=== PATIENT | female | born 1950 | race Caucasian/White ===

== ENCOUNTER → 2023-04-29 08:42 | Outpatient (REF) | payer MEDICARE, OTHER, SELFPAY | LOC: HWWDC 08:42 | PROVIDERS: ATTENDING PHYSICIAN Obstetrics & Gynecology Gynecology; FAMILY PHYSICIAN Family Medicine | DX: Z12.31 Encounter for screening mammogram for malignant neoplasm of breast (principal) | CPT/HCPCS: 77063; 77067 ==

== ENCOUNTER 2024-08-28 17:30 | Emergency (ER) | payer MEDICARE, OTHER, SELFPAY ==
[2024-08-28 17:37] VITALS: BP 137/79
[2024-08-28 17:58] LABS: Hematocrit 35.2 % (37.0-47.0); Hemoglobin 12.1 g/dL (12.0-16.0); Mean Corp Hgb Conc. 34.4 g/dL (33.0-37.0); Mean Corpuscular Volume 90.0 fL (81.0-99.0); Nucleated Red Blood Cells % 0 %; Platelet Count 275 10^3/uL (130-400); Red Cell Dist. Width 13.9 % (11.5-14.5)
[2024-08-28 18:00] VITALS: BMI 23.3
[2024-08-28 18:07] LABS: ALT (SGPT) 17 U/L (0-35); AST (SGOT) 24 U/L (14-36); Albumin 4.4 g/dl (3.5-5.0); Alkaline Phosphatase 49 U/L (38-126); Blood Urea Nitrogen 23 mg/dl (7-17); Calcium 9.3 mg/dl (8.4-10.2); Carbon Dioxide 23 mmol/L (22-30); Chloride 108 mmol/L (98-107); Glucose 102 mg/dl (70-99); Potassium 4.3 mmol/L (3.5-5.1); Sodium 135 mmol/L (135-145); Total Protein 6.5 g/dl (6.3-8.2); eGFR > 60.00
[2024-08-28 18:18] LABS: Troponin I < 0.012 ng/ml
[2024-08-28 21:00] VITALS: BMI 23.3
--- NOTE | 2024-08-28 21:03 | ED.GENMED ---
History of Present Illness
General
Chief Complaint: Chest Pain
Time Seen by Provider: 08/28/24 20:48
History of Present Illness
History of Present Illness:
74-year-old female presents the emergency department for evaluation of central chest discomfort and a 'weird' feeling in her chest that began while working in her garden at approximately 1300 today. [place] short of breath particular with exertion as
well as generally shaky. She has since improved. No history of similar symptoms. She is a typically very active person and has never had similar symptoms with this activity. No associated fever, chills, sweats, coughing, or vomiting.
Past History
Past History
ED Past Medical History: None
Social History
Tobacco: Non-smoker
Review of Systems
Review of Systems
Allergies reviewed?: Yes
All Other Systems: ROS reviewed and negative except as documented in HPI and ROS
Phy Exam
Physical Exam
Physical Exam:
GEN: Well appearing, NAD, WDWN
HEENT: Oral mucosa moist, no scleral icterus
Cardiac: Regular rate and rhythm, no murmur
Lung: No respiratory distress, no tachypnea, lungs clear to auscultation bilaterally
MSK: No gross deformity or injuries
Skin: Good color, no pallor or jaundice, no rashes
Neuro: AO x3, moves all extremities freely
Psych: Calm, cooperative
Scores
Heart Score for Chest Pain Patients
STEMI patient?: No
History: Moderately Suspicious
ECG: Normal
Age: >/= 65 years
Risk Factors: No Risk Factors
Troponin: </= Normal Limit
Heart Score for Chest Pain Patients: 3
Heart Score Risk: 2.5% MACE over next 6 weeks
Course
Orders/Labs/Results
Orders:
Orders
08/28/24 17:31
Electrocardiogram (*1) Urgent
Reason for Study: Chest Pain
EKG- Treatment ONCE
08/28/24 17:44
CMP [Comprehensive Metabolic Panel] Urgent
Complete Blood Count/With Diff Urgent
Troponin I Urgent
08/28/24 21:03
Electrocardiogram (*1) Urgent
Reason for Study: Chest Pain
EKG- Treatment ONCE
CR Chest - 2 Views Urgent
Comment:
Reason For Exam: chest pain/DIMAS
08/28/24 21:16
Troponin I Urgent
Abnormal Lab Results
08/28/24
17:44
RBC 3.91 L 10^6/uL
(4.20-5.40)
Hct 35.2 L %
(37.0-47.0)
Chloride 108 H mmol/L
(98-107)
BUN 23 H mg/dl
(7-17)
Glucose 102 H mg/dl
(70-99)
08/28/24 17:44
08/28/24 17:44
Vital Signs
Initial and Last Documented VS:
Initial Vital Signs
Temp Pulse Resp BP Pulse Ox
97.8 F 83 20 137/79 98
08/28/24 17:37 08/28/24 17:37 08/28/24 17:37 08/28/24 17:37 08/28/24 17:37
Last Documented Vital Signs
Temp Pulse Resp BP Pulse Ox
97.8 F 60 22 139/83 98
08/28/24 17:37 08/28/24 22:30 08/28/24 22:30 08/28/24 22:04 08/28/24 22:07
MDM/Problems Addressed
MDM/Problems Addressed:
Patient's initial and delta troponin/EKG all reassuring, she felt well in the ED. Will refer to cardiology as an outpatient, suitable for outpatient management
Comment
Comment:
EKG independently interpreted by me shows normal sinus rhythm with no ST changes concerning for ischemia
*Pulse Oximetry
SaO2: 98
Oxygen Mode of Delivery: Room air
Patient hypoxic: no
*Critical Care Note
Total Time (30-74mins, 75-104mins- exclusive of procedures): Not Applicable
ED Attending Note
-
Portions of this chart may have been created with voice recognition software.� Occasional wrong word or��sound alike� substitutions may have occurred due to the inherent limitations of voice recognition software.
Discharge Plan
Departure
Patient Disposition: Home (Routine Discharge)
Date of Disposition: 08/28/24
Time of Disposition: 22:24
Patient with high blood pressure during this ER visit?: No
Discharge Problem:
Chest pain
Instructions: Chest Pain DCA Follow Up
Prescriptions:
No Action
amoxicillin-pot clavulanate 1 TABLET tablet
1 tab PO Q12 Qty: 10 0RF
Referrals:
Daniel Harris DO [Family Provider, Family Practice]
Nish Resendiz MD [Active, Cardiology]
Interventions
Interventions:
*Risk Screen - Suicide Last Done: 08/28/24 17:37
*General Assessment Last Done: 08/28/24 17:37
*Neglect/Abuse Screening Last Done: 08/28/24 21:19
*ED- Fall Risk Assessment Last Done: 08/28/24 21:19
*ED COVID-19 Vaccine History Last Done: 08/28/24 21:19
ED- Cardiac Assessment Last Done: 08/28/24 21:20
Discharge Date and Time
Print Language: SETS[place]
[2024-08-28 21:21] VITALS: BP 134/70
[2024-08-28 21:51] LABS: Troponin I < 0.012 ng/ml
[2024-08-28 22:04] VITALS: BP 139/83
== END 2024-08-28 23:00 | disposition home or self-care (01) ==
LOC: EMR 17:30
PROVIDERS: Physician Assistant; EMERGENCY PHYSICIAN Emergency Medicine; FAMILY PHYSICIAN Family Medicine
DX: R07.89 Other chest pain (principal); R06.02 Shortness of breath
CPT/HCPCS: 99284; 71046; 80053; 84484; 85025; 93005

== ENCOUNTER → 2024-12-28 09:40 | Outpatient (REF) | payer MEDICARE, OTHER, SELFPAY | LOC: HWRAD 09:40 | PROVIDERS: ATTENDING PHYSICIAN Nurse Practitioner; FAMILY PHYSICIAN Family Medicine | DX: N39.0 Urinary tract infection, site not specified (principal) | CPT/HCPCS: 76770; 76856 ==